=== PATIENT | male | born 1950 | race Caucasian/White ===

== ENCOUNTER → 2018-06-03 | Outpatient (CLI) | payer BC, MEDICARE ==
[2018-06-03 18:04] LABS: Albumin 4.1 g/dL (3.80-4.90); Albumin/Globulin Ratio 1.58 (1.20-2.10); Anion Gap 7.9 mmol/L (4.00-12.00); Calcium 8.8 mg/dL (8.7-10.3); Carbon Dioxide 23.1 mmol/L (21.6-31.8); Globulin 2.6 g/dL (2.1-3.7); LDL Cholesterol,Calculated 89.6 mg/dL (0.0-131.0); Potassium 4.6 mmol/L (3.5-5.5); Total Bilirubin 0.7 mg/dL (0.2-1.2); Total Protein 6.7 g/dL (6.2-8.2); VLDL Calculation 24.4 mg/dL (5.00-40.00)
== END | disposition home or self-care (01) ==
LOC: LABWHC1 08:50
PROVIDERS: ATTEND Internal Medicine Interventional Cardiology
DX: E78.2 Mixed hyperlipidemia (principal); I49.3 Ventricular premature depolarization
CPT/HCPCS: 36415; 80053; 80061; 84443

== ENCOUNTER → 2018-07-25 | Outpatient (CLI) | payer BC ==
[2018-07-25 14:26] LABS: HCT 44.9 % (39.0-53.0); HGB 14.6 gm/dL (13.0-17.5); MCH 29.1 pg (25.0-35.0); MCHC 32.6 g/dL (31.0-37.0); MCV 89.1 fL (80.0-100.0); Mean Platelet Volume 6.9; Platelet Count 217 k/uL (150-450); RBC 5.04 m/uL (4.30-5.90); WBC 9.2 k/uL (3.8-10.6)
[2018-07-25 14:38] LABS: Anion Gap 7 mmol/L; Blood Urea Nitrogen 16 mg/dL (9-20); Carbon Dioxide 25 mmol/L (22-30); Chloride 108 mmol/L (98-107); Potassium 4.7 mmol/L (3.5-5.1); Sodium 140 mmol/L (137-145)
== END ==
LOC: LABPAT 13:50
PROVIDERS: ATTEND Internal Medicine Interventional Cardiology
DX: Z01.812 Encounter for preprocedural laboratory examination (principal); E78.2 Mixed hyperlipidemia; R07.9 Chest pain, unspecified; R94.39 Abnormal result of other cardiovascular function study
CPT/HCPCS: 36415; 80051; 82565; 84520; 85027

== ENCOUNTER 2018-08-06 06:29 | Day surgery (SDC) | payer BC ==
[2018-08-01 09:04] VITALS: BMI 32.5
[~2018-08-06 06:29] MED LIST: ALPRAZolam 0.25 MG TAB PO PRN; ALPRAZolam 0.5 MG TAB PO PRN; ASPIRIN 325 MG TAB PO STA; ATORVASTATIN 80 MG TAB PO STA; NITROGLYCERIN SL TABS 0.4 MG TAB SUBLINGUAL PRN; SODIUM CHLORIDE 0.9% 1,000 ML in EMPTY BAG 1 BAG IV ONE
[2018-08-06] MEDS ORDERED: LIDOCAINE 1% INJ 10MG/ML (20 ML MDV) ONE (07:19)
[2018-08-06] MEDS ORDERED: VERAPAMIL 2.5 MG/ML 2 ML AMP ONE (07:19)
[2018-08-06] MEDS ORDERED: fentaNYL (PF) 50 MCG/ML 2 ML AMP ONE (07:20)
[2018-08-06] MEDS ORDERED: HEPARIN SODIUM 1,000 UN/ML (10ML VL) ONE ×2 (07:20→08:51)
[2018-08-06] MEDS ORDERED: fentaNYL (PF) 50 MCG/ML 2 ML AMP IV ONE (07:48)
[2018-08-06] MEDS ORDERED: LIDOCAINE 1% INJ 10MG/ML (20 ML MDV) SQ ONE (07:56)
[2018-08-06] MEDS ORDERED: MIDAZOLAM 2 MG/2 ML VIAL IV ONE (07:57)
[2018-08-06] MEDS ORDERED: VERAPAMIL SYRINGE (5 MG/10 ML) INTRAARTER ONE (08:00)
[2018-08-06] MEDS: HEPARIN SODIUM 1,000 UN/ML (10ML VL) IV ONE ×2 (08:07→08:30)
[2018-08-06] MEDS ORDERED: NITROGLYCERIN 1000MCG/10ML SYRINGE INTRACORON ONE (08:22)
[2018-08-06] MEDS ORDERED: ADENOSINE 180 MG in SODIUM CHLORIDE 0.9% 30 ML IVP ONE (08:26)
[2018-08-06] MEDS ORDERED: PRASUGREL 10 MG TAB ONE ×2 (08:28→08:30)
[2018-08-06] MEDS ORDERED: PRASUGREL 10 MG TAB PO ONE (08:31)
[2018-08-06] MEDS ORDERED: IOPAMIDOL-370 125ML BTL INJ ONE (08:32)
[2018-08-06] MEDS ORDERED: IOPAMIDOL-370 100ML BTL INJ ONE (08:40)
[2018-08-06] MEDS ORDERED: HEPARIN SODIUM 1,000 UN/ML (10ML VL) IV ONE (08:50)
[2018-08-06] MEDS ORDERED: RX INFO: IV CONTRAST WAS GIVEN 1 EACH MISC MISCELLANE PRN (09:02)
[2018-08-06] MEDS ORDERED: MAG HYDROX/AL HYDROX/SIMETH 30 ML CUP PO PRN (09:02)
[2018-08-06] MEDS ORDERED: NITROGLYCERIN SL TABS 0.4 MG TAB SUBLINGUAL PRN (09:02)
[2018-08-06] MEDS ORDERED: ZOLPIDEM 5 MG TAB PO PRN (09:02)
[2018-08-06] MEDS ORDERED: ATROPINE SULFATE 0.1 MG/ML 10ML SYRINGE IV PRN (09:02)
[2018-08-06] MEDS ORDERED: SODIUM CHLORIDE 0.9% 1,000 ML IV SCH (09:15)
--- NOTE | 2018-08-06 10:16 | CC ---
CARDIAC CATHETERIZATION REPORT Mr. Bolanos is a 68-year-old male with known history of hyperlipidemia, hypertension who presented with symptoms of chest discomfort and had abnormal myocardial perfusion imaging. In view of that, recommendation was made regarding cardiac catheterization. The procedure as well as the risks and the complications were discussed with the patient who is in full understanding and agreement. PROCEDURE: Patient was brought to label stamper in a fasting semi-sedated state. After receiving fentanyl and Benadryl and achieving moderate conscious sedated state. Using Xylocaine anesthesia in the S[place]inger, a 6-Uruguayan sheath was introduced in the right radial artery. Selective right and left coronary angiography performed using 5-Uruguayan 3.5 bend right and left Brian catheter. Multiple views of the coronary artery including hemiaxial views were obtained. Following that, 5-Uruguayan tight pigtail catheter was introduced in the left ventricle and a 30-degree PASTRANA view of the left ventricle was obtained. Following that, catheters were removed. Catheters were removed. Images were reviewed. FINDINGS: LEFT MAIN: This is a short sized vessel, bifurcating immediately into left anterior descending artery and left circumflex. The left main coronary artery has no evidence of obstructive coronary artery disease. LEFT ANTERIOR DESCENDING ARTERY: This is a large-sized vessel reaching toward the apex with a wraparound apex segment giving rise to a large diagonal branch in the mid segment. After the takeoff of diagonal branch, there is an eccentric 50% to 60% plaque. The rest of the vessel has no high-grade stenosis. LEFT CIRCUMFLEX: This is a dominant vessel large in caliber bifurcating distally PDA and posterolateral segment branches. The left circumflex as well as branches have no evidence of obstructive coronary artery disease. RIGHT CORONARY ARTERY: This is a small nondominant vessel that has no evidence of high- grade stenosis. LEFT VENTRICULOGRAM: Left ventriculogram is performed in 30-degree PASTRANA view and revealed a mildly dilated left ventricle with global hypokinesis with ejection fraction of 35% to 40% There was no significant mitral regurgitation. HEMODYNAMICS: There was no gradient across the aortic valve. The left ventricular end- diastolic pressure was 8 to 12 mmHg. CONCLUSION: 1. Borderline significant lesion in the mid left anterior descending artery. 2. Dominant left circumflex. 3. Severely impaired left ventricular systolic function. RECOMMENDATION: In view of finding anatomy, I recommend proceeding with evaluation of the LAD lesion by fractional flow reserve and depending on the findings, further recommendation will be made. Those findings and recommendations were discussed with the patient and he is in full understanding and agreement. MMODL / IJN: [id number] /
--- NOTE | 2018-08-06 10:22 | AS ---
ARTERIAL STUDY FRACTIONAL FLOW RESERVE MEASUREMENT AND ANGIOPLASTY PROCEDURE NOTE: Mr. Bolanos is a 68-year-old male with a history of hypertension, hyperlipidemia, who had an abnormal myocardial perfusion imaging, underwent cardiac catheterization, was found to have borderline significant lesion in the LAD. In view of that, recommendation regarding evaluation of the lesion by fractional flow reserve. The procedures, risks and complications were discussed with the patient who is in full understanding and agreement. PROCEDURE: A 6-Bengali FL 3.5 guiding catheter was introduced into the system. After cannulating the left anterior descending artery, the Doppler flow wire was advanced, positioned distally. Following that and with infusion of adenosine per protocol, the FFR was calculated at 0.76. At that point a 3.0 x 15 mm Xience Faby stent was deployed and post-dilated to 16 atmospheres. Following that, the 0.014 whisper J-wire was advanced into the diagonal branch and a 2.75 x 12 mm Trek balloon was advanced and to inflation maximum of 10 atmospheres were done. After the last inflation, after appropriate wait, the balloon and the guidewire were withdrawn back in the guiding catheter. Images were obtained and repeated. Those images reveal stable successful stenting. At that point, the guiding catheter, the balloon and the guidewire were removed. The sheath was removed. Hemostasis was obtained with deployment of a TR band. There was no immediate complication. Patient is returned to his room in stable condition. Of note, the patient received a total of 12,000 units of heparin as well as intra-arterial verapamil. He had chest discomfort with the inflation that improved at the end of the procedure. RESULTS: Successful stenting of the mid LAD with reduction of stenosis from 60%-70% down to 0% with a pre procedure positive fractional flow reserve. RECOMMENDATION: Patient will be continued on present medical therapy including aspirin and Effient. He has received an oral loading dose of Effient at the start the procedure. The importance of dual antiplatelet treatment were discussed with the patient and his family who are in full understanding and agreement. Duration of the procedure is 61 minutes. MMODL / IJN: [id number] /
[2018-08-06] MEDS ORDERED: ACETAMINOPHEN TAB 325 MG TAB PO PRN (11:23)
[2018-08-06] MEDS ORDERED: ACETAMINOPHEN TAB 325 MG TAB ONE (11:25)
[2018-08-06] MEDS ORDERED: MORPHINE SULFATE 2 MG/ML SYRINGE IVP ONE (13:50)
[2018-08-06] MEDS ORDERED: MORPHINE SULFATE 4 MG/ML SYRINGE ONE (13:51)
[2018-08-06] MEDS: METOPROLOL TARTRATE 25 MG TAB PO SCH (20:57)
[2018-08-06] MEDS ORDERED: ATORVASTATIN 80 MG TAB PO SCH (23:00)
[2018-08-06 23:15] VITALS: RESP 16; TEMP 97.7
--- NOTE | 2018-08-07 07:40 | PN ---
PROGRESS NOTE Mr. Bolanos is a 68-year-old male with history of hyperlipidemia, who has been complaining of chest pain and abnormal myocardial perfusion imaging, underwent cardiac catheterization, was found to have borderline significant lesion in the mid LAD, underwent FFR to the lesion that was abnormal and underwent stenting of that vessel. He was found to have at the same time an impaired left ventricular systolic function. He is doing well this morning, ambulating without difficulty. Denying any chest pain. No dizziness. No palpitation. He continues to be on aspirin once a day, Lipitor 80 mg daily, metoprolol 25 mg twice a day, and Effient 10 mg daily. PHYSICAL EXAMINATION: Blood pressure 126/59 with the heart rate in 60s. LUNGS: Clear. HEART: Regular rate and rhythm. S1, S2. No S3. No rub. ABDOMEN: Soft, nontender. EXTREMITIES: No edema. Right radial pulse intact. EKG revealed sinus mechanism with occasional PVCs and no acute ST-segment changes. IMPRESSION: 1. Status post stenting of the left anterior descending artery. 2. Cardiomyopathy, could be arrhythmia induced. 3. Hyperlipidemia. RECOMMENDATION: Patient will be discharged home today. Lisinopril 5 mg daily will be added to his regimen. His left ventricular systolic function will be followed and depending on his progress, further recommendation will be made. MMODL / IJN: [id number] /
[2018-08-07 07:55] LABS: Anion Gap 6 mmol/L; Blood Urea Nitrogen 13 mg/dL (9-20); Calcium 8.9 mg/dL (8.4-10.2); Carbon Dioxide 24 mmol/L (22-30); Chloride 110 mmol/L (98-107); Glucose 103 mg/dL (74-99); Potassium 4.3 mmol/L (3.5-5.1); Sodium 140 mmol/L (137-145)
[2018-08-07] MEDS: METOPROLOL TARTRATE 25 MG TAB PO SCH (08:28)
[2018-08-07 08:30] VITALS: BP 115/78; PULSE 72
[2018-08-07] MEDS ORDERED: PRASUGREL 10 MG TAB PO SCH (09:00)
[2018-08-07] MEDS ORDERED: ASPIRIN 81 MG PO SCH (09:00)
[2018-08-07] MEDS ORDERED: LISINOPRIL 5 MG TAB PO SCH (09:00)
== END 2018-08-07 08:49 | disposition home or self-care (01) ==
LOC: CATHCVL 06:29 → 3SCARD 16:00 → CATHCVL 08-07 08:49
PROVIDERS: ATTEND Internal Medicine Interventional Cardiology
DX: I25.10 Atherosclerotic heart disease of native coronary artery without angina pectoris (principal); I10 Essential (primary) hypertension; I42.9 Cardiomyopathy, unspecified; E78.2 Mixed hyperlipidemia; Z82.49 Family history of ischemic heart disease and other diseases of the circulatory system; I49.3 Ventricular premature depolarization; Z79.82 Long term (current) use of aspirin; Z79.899 Other long term (current) drug therapy
CPT/HCPCS: 93571; 93458; 80048; C9600; C1769 ×2; C1887; C1894; C1725; C1874; J2250; J2001; J3010; J2270; J1644; J0153; Q9967 ×2; 93005

== ENCOUNTER → 2018-10-31 | Outpatient (CLI) | payer BC ==
[2018-10-31 16:01] LABS: Albumin 4.3 g/dL (3.80-4.90); Albumin/Globulin Ratio 1.59 (1.60-3.17); Globulin 2.7 g/dL (1.6-3.3); Potassium 4.6 mmol/L (3.5-5.5); Total Bilirubin 1.2 mg/dL (0.3-1.2)
== END | disposition home or self-care (01) ==
LOC: LABWHC1 09:09
PROVIDERS: ATTEND Nurse Practitioner Adult Health
DX: I25.10 Atherosclerotic heart disease of native coronary artery without angina pectoris (principal); E78.2 Mixed hyperlipidemia
CPT/HCPCS: 36415; 80053; 80061

== ENCOUNTER → 2019-08-04 | Outpatient (CLI) | payer BC ==
[2019-08-04 15:54] LABS: African American GFR (CKD) 106.4 (60.0-200.0); Albumin 4.1 g/dL (3.80-4.90); Albumin/Globulin Ratio 1.78 (1.60-3.17); Anion Gap 6.3 mmol/L (4.00-12.00); BUN/Creat Ratio 17.5 Ratio (12.00-20.00); Calcium 8.8 mg/dL (8.7-10.3); Carbon Dioxide 25.7 mmol/L (21.6-31.8); Chol/HDL Ratio 3.16; Globulin 2.3 g/dL (1.6-3.3); LDL Cholesterol,Calculated 73.2 mg/dL (0.0-131.0); Non-African American GFR(CKD) 91.8 (60.0-200.0); Potassium 4.4 mmol/L (3.5-5.5); Total Bilirubin 1.1 mg/dL (0.3-1.2); Total Protein 6.4 g/dL (6.2-8.2); VLDL Calculation 21.8 mg/dL (5.00-40.00)
== END | disposition home or self-care (01) ==
LOC: LABWHC1 09:13
PROVIDERS: ATTEND Internal Medicine Interventional Cardiology
DX: E78.2 Mixed hyperlipidemia (principal)
CPT/HCPCS: 36415; 80053; 80061

== ENCOUNTER → 2020-01-26 | Outpatient (CLI) | payer BC ==
--- NOTE | 2020-01-26 14:15 | P.SLEEP ---
History of Present Illness H&P Date: 01/26/20 This is a 69-year-old male patient with known history of coronary artery disease with previous stenting of the LAD, CHF with global hypokinesis and an ejection fraction of 30-35% and history of obstructive sleep apnea with a previous UPPP procedure done many years back. The patient was referred to me for reevaluation knowing that currently is not undergoing any treatment and he is been feeling quite somnolent and sleepy. For all this reasons, he was sent back to me. according to the , he is still snoring. His snoring got slightly better after he underwent his UPPP back in 1997. Since then, his snoring has gotten back and the patient is becoming a bit more drowsy and sleepy during the day. There was one occasion when he slipped while waiting on a traffic signal. His current [place] score is 9. His weight has been essentially stable. No nighttime angina. No nighttime palpitation. Wakes up in the middle of the night utilize the bathroom. He goes to bed at around 11 PM when he wakes up between 7 and 9 AM in the morning. He is averaging between 6 and 7 hours of sleep. He wakes up 2-3 times in the middle of the night for the reasons mentioned above. No history of any motor vehicle accident because of feeling drowsy or sleepy. No restlessness in lower extremity. No nocturnal dyspnea angina shortness of breath or heartburn. No restlessness in lower extremities. No anxiety. No depression. No substance abuse. Review of Systems Constitutional: Denies chills, Denies fever Eyes: denies as per HPI, denies blurred vision, denies bulging eye, denies decreased vision, denies diplopia, denies discharge, denies dry eye, denies irritation, denies itching, denies pain, denies photophobia, denies loss of peripheral vision, denies loss of vision, denies tunnel vision/blind spots Ears: deny: decreased hearing, ear discharge, earache, tinnitus Ears, nose, mouth and throat: Denies headache, Denies sore throat Breasts: absent: as per HPI, gynecomastia Cardiovascular: Denies chest pain, Denies shortness of breath Respiratory: Reports as per HPI Gastrointestinal: Reports as per HPI Genitourinary: Reports as per HPI Musculoskeletal: Reports as per HPI Musculoskeletal: absent: ankle pain, ankle stiffness, ankle swelling Integumentary: Reports as per HPI Neurological: Reports as per HPI Psychiatric: Reports as per HPI Endocrine: Reports as per HPI Hematologic/Lymphatic: Reports as per HPI Allergic/Immunologic: Reports as per HPI Past Medical History Past Medical History: Coronary Artery Disease (CAD), Heart Failure (EF og 30- 35%), Hyperlipidemia, Hypertension, Sleep Apnea/CPAP/BIPAP History of Any Multi-Drug Resistant Organisms: None Reported Past Surgical History: Heart Catheterization With Stent, Orthopedic Surgery Additional Past Surgical History / Comment(s): both knees replaced, achilles tendon repair,cervical laminectomy & fusion, arthroscopy knee, UPPP for sleep apnea. cervical surgery c3-c5, cardiac catheterization and stenting of the LAD Past Anesthesia/Blood Transfusion Reactions: Postoperative Nausea & Vomiting (PONV) Past Psychological History: No Psychological Hx Reported Smoking Status: Never smoker Past Alcohol Use History: None Reported Past Drug Use History: None Reported - Past Family History Mother Family Medical History: Deep Vein Thrombosis (DVT) Medications and Allergies Home Medications Medication Instructions Recorded Confirmed Type Aspirin 81 mg PO DAILY 10/13/14 08/06/18 History Fish Oil/Dha/Epa [Fish Oil 1,200 1 each PO DAILY 10/13/14 08/06/18 History mg Fish Oil] Multivitamin [Men's Multi-Vitamin] 1 each PO DAILY 10/13/14 08/06/18 History Zolpidem [Ambien] 5 mg PO HS PRN 10/13/14 08/06/18 History Metoprolol Tartrate 25 mg PO BID 08/01/18 08/06/18 History Atorvastatin [Lipitor] 80 mg PO HS #90 tab 08/07/18 Rx Lisinopril [Zestril] 5 mg PO DAILY #90 tab 08/07/18 Rx Nitroglycerin Sl Tabs [Nitrostat] 0.4 mg SUBLINGUAL Q5M PRN #25 tab 08/07/18 Rx Prasugrel [Effient] 10 mg PO DAILY #90 tab 08/07/18 Rx Allergies Allergy/AdvReac Type Severity Reaction Status Date / Time No Known Allergies Allergy Verified 08/06/18 06:42 Physical Exam - Constitutional General appearance: no acute distress - EENT Eyes: EOMI ENT: other (post UPPP) Ears: negative: bulging, bullous, dull, erythema, fluid, myringotomy tube, o bstructed by cerumen, scarring, unable to vistualize, other - Neck Neck: no lymphadenopathy Carotids: negative: upstroke normal, upstroke delayed, upstroke diminished, upstroke bounding, bruit absent, bruit present Thyroid: negative: normal size, enlarged, firm, nodule - Respiratory Respiratory: negative: CTA, diminished, dullness, rales, rhonchi, wheezing, prolonged expiration, prolonged inspiration, other - Cardiovascular Rhythm: regular Heart sounds: normal: S1, S2 - Gastrointestinal General gastrointestinal: no organomegaly, soft, no tenderness - Integumentary Integumentary: normal - Neurologic Neurologic: CNII-XII intact, focal deficits - Musculoskeletal Musculoskeletal: gait normal, strength equal bilaterally - Psychiatric Psychiatric: A&O x's 3 Assessment and Plan Plan: 1 ALBERT this patient has a diagnosis of obstructive sleep apnea. He has undergone a previous UPPP back in 1997. Nevertheless, some of the symptoms are back including the increased fatigue and sleepiness. His current [place] score is 9. He is snoring and has some mild sleep fragmentation. He was sent over for reevaluation I think is very reasonable to proceed with another polysomnogram looking for any significant sleep apnea. 2 coronary artery disease with previous coronary stenting of the LAD 3 CHF with cardiomyopathy which is global and an ejection fraction of 30-35% 4 hypertension 5 hyperlipidemia 6 previous UPPP 7 arthritis with multiple orthopedic surgeries including bilateral knee replacements Plan Proceed with another screening polysomnogram to assess for the presence of sleep apnea. We'll consider treatment with CPAP therapy if there is significant sleep breathing disorder that affecting his daytime functionality and his other comorbidities. Encourage weight loss. Ultimately sleep hygiene measures. We'll continue to follow. Sleep Note - Sleep Data Previous Sleep Study: Yes Previous Sleep Study Location: Not known location - Sleep Note Sleep Note: Temperature: 97 8F Pulse Rate: 80 Respiratory Rate: 20 Blood Pressure: 91/61 SpO2: 96% Height: 6 feet 2 inches Weight: 256 pounds BMI: 32.4 Neck Circumference: 16 and 3/4of an inch
== END | disposition home or self-care (01) ==
LOC: SLEEP 13:46
PROVIDERS: ATTEND Internal Medicine Critical Care Medicine
DX: G47.33 Obstructive sleep apnea (adult) (pediatric) (principal); I25.10 Atherosclerotic heart disease of native coronary artery without angina pectoris; I11.0 Hypertensive heart disease with heart failure; E78.5 Hyperlipidemia, unspecified; M17.0 Bilateral primary osteoarthritis of knee; Z96.653 Presence of artificial knee joint, bilateral; Z95.5 Presence of coronary angioplasty implant and graft; Z98.890 Other specified postprocedural states; Z79.82 Long term (current) use of aspirin; Z79.899 Other long term (current) drug therapy
CPT/HCPCS: 99211

== ENCOUNTER → 2020-08-02 | Outpatient (CLI) | payer BC ==
--- NOTE | 2020-08-02 16:35 | PN ---
PROGRESS NOTE Diaz is coming in for a compliancy check regarding his new CPAP machine. The patient was diagnosed having obstructive sleep apnea with an AHI of 16. He has undergone previous UPPP. Based on the symptomatic nature of his disease, the patient was given CPAP therapy, which is set at a pressure of 11 cm of water. He is using a large size of Vitera full face mask. Based on a 30-day compliancy, the patient is doing well, yet we have noted some drop in the compliance over the past 30 days, as the patient is having difficulties with oral dryness. He has increased his humidity level up to 6. Based on the compliance data that was collected between 05/27/2020 and 06/25/2020, his numbers looked decent with an average use of 5 hours and 42 minutes and the CPAP use for more than 4 hours achieving 80%. At that time, his AHI was down to 3.7 and the leak was around 12.7 L and no central apneas were noted. Nevertheless, his compliancy has gone down based on the increased dryness and based on the discomfort that he is getting from full face mask. His current Charlotte Score is at 7. PHYSICAL EXAMINATION: BP is 91/56, pulse 64, respirations 16, weight is 261, temperature 98.4, saturation 97% on room air. GENERAL APPEARANCE: Calm, comfortable. HEAD: Atraumatic, normocephalic. NECK: Supple. No JVD. No goiter or neck masses, Mallampati class 4. LUNGS: Clear to auscultation. HEART: Sounds are regular rate and rhythm. Normal S1, S2. No S3, S4. No murmurs. ABDOMEN: Soft, nontender. No organomegaly. EXTREMITIES: No edema, no cyanosis or clubbing. NEUROLOGIC: Awake, alert. There is no focal neurological deficit. IMPRESSION: 1. Moderate to severe obstructive sleep apnea with an AHI of 16, currently on CPAP at a pressure of 11 cm of water. The patient is post UPPP. 2. Adequate compliancy, although the compliancy has been gradually getting worse as the patient is having increased oral dryness. He is currently using a full-face mask with a minimum amount of leak around his face mask. 3. Sleep fragmentation, improved. 4. Hypersomnia, improved. 5. Hypertension. 6. Hyperlipidemia. 7. Coronary artery disease. 8. History of congestive heart failure with ejection fraction of 35%. PLAN: 1. Continue CPAP therapy at same level of pressure which is 11 cm of water. 2. Will offer the patient an AirFit F20 full face mask, large size. 3. Will offer the patient climate line and gradually drop down the humidity. 4. Anticipate improvement in his compliancy data. 5. See me back in a year's time and followup earlier if needed. MMODL / IJN: [id number] /
== END | disposition home or self-care (01) ==
LOC: SLEEP 13:53
PROVIDERS: ATTEND Internal Medicine Critical Care Medicine
DX: G47.33 Obstructive sleep apnea (adult) (pediatric) (principal); G47.10 Hypersomnia, unspecified; I10 Essential (primary) hypertension; E78.5 Hyperlipidemia, unspecified; I25.10 Atherosclerotic heart disease of native coronary artery without angina pectoris; Z99.89 Dependence on other enabling machines and devices; Z86.79 Personal history of other diseases of the circulatory system

== ENCOUNTER → 2020-08-04 | Outpatient (CLI) | payer BC ==
[2020-08-04 20:47] LABS: African American GFR (CKD) 105.6 (60.0-200.0); Albumin 4.3 g/dL (3.80-4.90); Albumin/Globulin Ratio 1.65 (1.60-3.17); Anion Gap 8.2 mmol/L (4.00-12.00); Carbon Dioxide 25.8 mmol/L (21.6-31.8); Chol/HDL Ratio 2.9; Globulin 2.6 g/dL (1.6-3.3); Non-African American GFR(CKD) 91.1 (60.0-200.0); Potassium 4.3 mmol/L (3.5-5.5); Total Bilirubin 1.1 mg/dL (0.3-1.2); Total Protein 6.9 g/dL (6.2-8.2)
== END | disposition home or self-care (01) ==
LOC: LABWHC1 09:50
PROVIDERS: ATTEND Internal Medicine Interventional Cardiology
DX: E78.2 Mixed hyperlipidemia (principal)
CPT/HCPCS: 36415; 80053; 80061

== ENCOUNTER → 2021-02-06 | Outpatient (CLI) | payer BC ==
[2021-02-06 14:40] LABS: Chol/HDL Ratio 2.84; LDL Cholesterol,Calculated 61.4 mg/dL (0.0-131.0); VLDL Calculation 19.6 mg/dL (5.00-40.00)
== END ==
LOC: LABWHC1 08:50
PROVIDERS: ATTEND Nurse Practitioner Adult Health
DX: E78.2 Mixed hyperlipidemia (principal)
CPT/HCPCS: 36415; 80061; 84450; 84460

== ENCOUNTER → 2021-04-20 | Outpatient (CLI) | payer BC ==
--- NOTE | 2021-04-21 09:41 | MR ---
EXAMINATION TYPE: MR shoulder LT wo con DATE OF EXAM: 04/20/2021 COMPARISON: Plain film 03/28/2021 HISTORY: Left shoulder pain TECHNIQUE: Multiplanar, multisequence imaging of the left shoulder is performed without contrast. FINDINGS: Rotator Cuff: There is abnormal increased signal involving the rotator cuff. The rotator cuff appears attenuated. Coronal image #7 and 8 show abnormal fluid signal at the level of the insertion of the r otator cuff suggesting a partial undersurface tear. There is likely fraying of the tendon more proxim ally. At the posterior aspect of the insertion there is some fluid signal present possibly representi ng a partial undersurface tear. Acromioclavicular Joint: Arthropathy changes present as noted on plain film, there is mass effect on the musculotendinous junction of supraspinatus. There is small distal acromial spur. Glenohumeral Joint: There is osteoarthritic change, remodeling the humeral head Labrum: Posterior labrum shows some focal increased signal on axial image 13, sagittal image #15 of s eries 701 suggesting a partial tear Biceps Tendon: Fluid signal is present along the long head of biceps tendon, there may be a ganglion cyst present axial image #5 measuring 6 mm, the tendon shows a normal position in the bicipital groov e Bone marrow signal: There are some pseudocysts present within the humeral head Other: There is a small joint effusion, some fluid signal is present in the subacromial subdeltoid bu rsa IMPRESSION: There is tendinopathy of the rotator cuff, possible undersurface, intrasubstance tears, correlate for impingement. Marked acromioclavicular joint arthropathy change, possible tear of the posterior labru m noted, there is underlying osteoarthritic change.
== END | disposition home or self-care (01) ==
LOC: RADMRIMAIN 11:03
PROVIDERS: ATTEND Orthopaedic Surgery
DX: M19.012 Primary osteoarthritis, left shoulder (principal); M67.814 Other specified disorders of tendon, left shoulder

== ENCOUNTER → 2021-05-08 | Outpatient (CLI) | payer BC ==
[2021-05-08 16:33] LABS: Basophils # (A) 0.1 k/uL (0-0.2); Basophils % (A) 1 %; Eosinophils # (A) 0.3 k/uL (0-0.7); Eosinophils % (A) 3 %; HCT 43.1 % (39.0-53.0); HGB 14.7 gm/dL (13.0-17.5); Lymphocytes # (A) 2.3 k/uL (1.0-4.8); Lymphocytes % (A) 27 %; MCH 31.2 pg (25.0-35.0); MCHC 34.1 g/dL (31.0-37.0); MCV 91.6 fL (80.0-100.0); Mean Platelet Volume 8.3; Monocytes # (A) 0.7 k/uL (0-1.0); Monocytes % (A) 8 %; Neutrophils # (A) 5.2 k/uL (1.3-7.7); Neutrophils % (A) 59 %; Platelet Count 234 k/uL (150-450); RBC 4.71 m/uL (4.30-5.90); RDW 13.1 % (11.5-15.5); WBC 8.7 k/uL (3.8-10.6)
[2021-05-08 16:47] LABS: Potassium 4.7 mmol/L (3.5-5.1)
== END | disposition home or self-care (01) ==
LOC: LABPAT 15:38
PROVIDERS: ATTEND Orthopaedic Surgery
DX: Z01.812 Encounter for preprocedural laboratory examination (principal); I10 Essential (primary) hypertension; E87.3 Alkalosis; M75.42 Impingement syndrome of left shoulder
CPT/HCPCS: 36415; 80051; 85025

== ENCOUNTER 2021-06-07 07:42 | Day surgery (SDC) | payer BC ==
--- NOTE | 2021-06-06 20:02 | HP ---
HISTORY AND PHYSICAL DATE OF SURGERY: 06/07/2021 Diaz Bolanos is a 70-year-old gentleman seen with progressive left shoulder pain. We discussed options for treatment. He elected to proceed with left shoulder arthroscopy. Consent was obtained. PAST MEDICAL HISTORY: Hypertension, hyperlipidemia. PAST SURGICAL HISTORY: Left knee arthroscopy, right total knee arthroplasty. DAILY MEDICATIONS: Atorvastatin, lisinopril, metoprolol. ALLERGIES: NONE. SOCIAL HISTORY: He denies tobacco use. PHYSICAL EVALUATION OF THE LEFT SHOULDER: Flexion is 140 degrees. Abduction is 120 degrees. External rotation is 40 degrees with some weakness. There is tenderness along the anterolateral acromion and rotator cuff insertion site. Impingement is positive at 90 degrees. Cross-body adduction sign is positive. Drop-arm sign is positive. Distal neurovascular exam is intact. IMAGING: Radiographs of the left shoulder revealed a type 2 acromion, evidence for acromioclavicular joint osteoarthritis and cystic changes of the greater tuberosity. Left shoulder MRI revealed impingement, acromioclavicular joint osteoarthritis and partial rotator cuff tear. IMPRESSION: 1. Left shoulder impingement with partial rotator cuff tear. 2. Left shoulder acromioclavicular joint osteoarthritis. 3. Hypertension. 4. Hyperlipidemia. PLAN: Left shoulder arthroscopy with subacromial decompression, possible arthroscopic rotator cuff repair, Myriam procedure and debridement. MMODL / IJN: [id number] /
[~2021-06-07 07:42] MED LIST changes: -ALPRAZolam 0.25 MG TAB PO PRN; -ALPRAZolam 0.5 MG TAB PO PRN; -ASPIRIN 325 MG TAB PO STA; -ATORVASTATIN 80 MG TAB PO STA; +DEXAMETHASONE SOD PHOSPHATE 4 MG/ML 1 ML VIAL IV ONE; +HYDROmorphone 0.5 MG/0.5 ML SYRINGE IVP PRN; +LACTATED RINGERS 1,000 ML IV SCH; +LIDOCAINE 1% (10MG/ML) FOR IV START INTRADERMA PRN; +MIDAZOLAM 2 MG/2 ML VIAL IV PRN; -NITROGLYCERIN SL TABS 0.4 MG TAB SUBLINGUAL PRN; +ONDANSETRON 4 MG/2 ML VIAL IVP ONE; -SODIUM CHLORIDE 0.9% 1,000 ML in EMPTY BAG 1 BAG IV ONE; +ceFAZolin 3 GM in SODIUM CHLORIDE 0.9% 100 ML IVPB PRN
[2021-06-07] MEDS ORDERED: ROPIVACAINE 5 MG/ML 30 ML VIAL ONE (09:35)
[2021-06-07] MEDS ORDERED: GLYCOPYRROLATE 0.2 MG/ML 2 ML VIAL ONE (09:35)
[2021-06-07 10:48] VITALS: TEMP 97.8
[2021-06-07 10:52] VITALS: RESP 16
[2021-06-07 12:58] VITALS: PULSE 72
[2021-06-07 13:15] VITALS: BP 134/76
--- NOTE | 2021-06-07 13:20 | P.PN ---
Progress Note - Text Patient has an appointment scheduled with Dr. Sahu in the office on 06/14/21 at 9:30AM.
--- NOTE | 2021-06-07 13:55 | P.ANPRN ---
Procedure Note - Anesthesia - Nerve Block Performed Left Interscalene Time Out Performed: Yes (:) Date of Procedure: 06/07/21 Procedure Start Time: Procedure Stop Time: Location of Patient: PreOp Indication: Acute Post-Operative Pain, Requested by Surgeon (Dr Ramos) Sedation Type: Sedate with meaningful contact maintained Preparation: Sterile Prep Position: Supine Catheter: None Needle Types: Pajunk Needle Gauge: Other (see comment) (22g) Ultrasound used to visualize needle placement: Yes Ultrasound used to observe medication spread: Yes Injectate: 0.5% Ropivacaine (see comment for volume) (20cc) Blood Aspirated: No Pain Paresthesia on Injection Noted: No Resistance on Injection: Normal Image Stored and Saved: Yes Events: Uneventful and Well Tolerated
--- NOTE | 2021-06-07 18:25 | CONS ---
CONSULTATION Mr. Bolanos is a 70-year-old male who presented to undergo left shoulder surgery by Dr. Ramos. In the preoperative phase and after receiving sedation, he was noted to have frequent ventricular ectopic activity. In view of that, the surgery was canceled and cardiology consultation was requested. Patient has a known history of coronary artery disease, status post stenting of the mid LAD in 2019, history of hyperlipidemia. He has been relatively stable from the cardiac standpoint. He has a history of mild cardiomyopathy. He had frequent ventricular ectopic activity in the past that has been asymptomatic. He denies any dizziness or palpitations. He denies any syncope. No PND, orthopnea or peripheral edema. MEDICATION: His medication at home included Lipitor 80 mg daily, aspirin once a day, lisinopril 5 mg daily, and metoprolol tartrate 25 mg twice a day. REVIEW OF SYSTEMS: RESPIRATORY SYSTEM: He has no documented history of asthma, emphysema or bronchitis. GI SYSTEM: No recent GI bleeding. No peptic ulcer disease. SYSTEM: No dysuria or hematuria. NERVOUS SYSTEM: No stroke or seizure. PHYSICAL EXAMINATION: Ldmye-ycbj-eijm-old male, alert, oriented, no apparent distress. Examined in the recovery phase 1 room. Blood pressure 140/70 with a heart rate in 70s. HEAD: Normocephalic. EYES: Sclerae anicteric. NECK: Good carotid upstroke. No bruit. No jugular venous distention. LUNGS: Clear to auscultation. HEART: Regular rate and rhythm. S1, S2. No S3. No rub. ABDOMEN: Soft, nontender. Positive bowel sounds. No organomegaly. EXTREMITIES: No significant edema. IMPRESSION: 1. Ventricular ectopic activity documented in the past, asymptomatic. 2. History of coronary artery disease. 3. Left shoulder discomfort; scheduled to undergo surgical intervention. 4. History of hyperlipidemia. RECOMMENDATIONS: From the cardiac standpoint, I will continue present therapy. His surgery has been canceled today. He will be seen in the office next week to see if further adjustment of his medical regimen is needed. Thank you for this consult. Will follow with you. MMODL / IJN: [id number] /
== END 2021-06-07 13:23 | disposition home or self-care (01) ==
LOC: OR 07:42
PROVIDERS: ATTEND Orthopaedic Surgery
DX: M25.812 Other specified joint disorders, left shoulder (principal); M75.112 Incomplete rotator cuff tear or rupture of left shoulder, not specified as traumatic; I49.3 Ventricular premature depolarization; Z53.8 Procedure and treatment not carried out for other reasons; M19.012 Primary osteoarthritis, left shoulder; I25.10 Atherosclerotic heart disease of native coronary artery without angina pectoris; I10 Essential (primary) hypertension; I42.9 Cardiomyopathy, unspecified; E78.5 Hyperlipidemia, unspecified; Z98.890 Other specified postprocedural states; Z95.5 Presence of coronary angioplasty implant and graft; Z79.82 Long term (current) use of aspirin; Z79.899 Other long term (current) drug therapy
CPT/HCPCS: 93005; 64415; 76942; J2250; J1100; J2405; J2795

== ENCOUNTER 2021-07-12 08:28 | Day surgery (SDC) | payer BC ==
[2021-07-11 08:49] VITALS: BMI 34.0
--- NOTE | 2021-07-11 19:52 | HP ---
HISTORY AND PHYSICAL DATE OF SURGERY: 07/12/2021 Diaz Bolanos is a 71-year-old gentleman seen with progressive left shoulder pain. We discussed options for treatment. He elected to proceed with left shoulder arthroscopy. Consent was obtained. Cardiac clearance was provided by Dr. Sahu. PAST MEDICAL HISTORY: Hypertension, hyperlipidemia. PAST SURGICAL HISTORY: Left knee arthroscopy, right total knee arthroplasty. DAILY MEDICATIONS: Atorvastatin, lisinopril, metoprolol, ibuprofen. ALLERGIES: NONE. SOCIAL HISTORY: He denies tobacco use. PHYSICAL EVALUATION OF THE LEFT SHOULDER: Flexion is 140 degrees, abduction is 120 degrees. External rotation is 40 degrees with some weakness, tenderness along the anterolateral acromion and rotator cuff insertion site. Impingement is positive at 90 degrees. Cross-body adduction sign is positive. Drop-arm sign is positive. Distal neurovascular exam is intact. Radiographs of the left shoulder reveal type 2 acromion, acromioclavicular joint osteoarthritis and cystic changes of the tuberosity. MRI left shoulder shows impingement, acromioclavicular joint osteoarthritis, possible rotator cuff tear, possible labral tear. IMPRESSION: 1. Left shoulder impingement with possible rotator cuff tear. 2. Left shoulder acromioclavicular joint osteoarthritis. 3. Hypertension. 4. Hyperlipidemia. PLAN: Left shoulder arthroscopy with subacromial decompression, Myriam procedure, possible rotator cuff repair and debridement. MMODL / IJN: [id number] /
[~2021-07-12 08:28] MED LIST changes: -MIDAZOLAM 2 MG/2 ML VIAL IV PRN
[2021-07-12] MEDS ORDERED: METOPROLOL TARTRATE 25 MG TAB PO STA (09:11)
[2021-07-12] MEDS ORDERED: MIDAZOLAM 2 MG/2 ML VIAL IV ONE (09:57)
[2021-07-12] MEDS ORDERED: fentaNYL (PF) 50 MCG/ML 5 ML AMP IV ONE (09:57)
[2021-07-12] MEDS ORDERED: SUCCINYLCHOLINE CHLORIDE 100 MG/5 ML SYR IV ONE (10:10)
[2021-07-12] MEDS ORDERED: LIDOCAINE 1% INJ 10MG/ML (20 ML MDV) ONE (10:10)
[2021-07-12] MEDS ORDERED: PROPOFOL 10 MG/ML 20 ML VIAL IV ONE (10:10)
[2021-07-12] MEDS ORDERED: .fentaNYL (PF) 50 MCG/ML 2 ML AMP ONE (10:10)
[2021-07-12] MEDS ORDERED: ROPIVACAINE 5 MG/ML 30 ML VIAL ONE (10:10)
--- NOTE | 2021-07-12 10:51 | P.ANPRN ---
Procedure Note - Anesthesia - Nerve Block Performed Left Interscalene Single Time Out Performed: Yes ([id number]) Date of Procedure: 07/12/21 Procedure Start Time: 09:57 Procedure Stop Time: 10:02 Location of Patient: PreOp Indication: Acute Post-Operative Pain, Requested by Surgeon Specifically requested for management of pain by DrVira: Keo Ramos Sedation Type: Sedate with meaningful contact maintained Preparation: Sterile Prep Position: Supine Catheter: None Needle Types: Pajunk Needle Gauge: 21 Ultrasound used to visualize needle placement: Yes Ultrasound used to observe medication spread: Yes Injectate: 0.5% Ropivacaine (see comment for volume) (30cc) Blood Aspirated: No Pain Paresthesia on Injection Noted: No Resistance on Injection: Normal Image Stored and Saved: Yes Events: Uneventful and Well Tolerated
--- NOTE | 2021-07-12 11:51 | P.OP ---
Date of Procedure: 07/12/21 Preoperative Diagnosis: Left shoulder impingement Postoperative Diagnosis: 1. Left shoulder rotator cuff tear 2. Left shoulder impingement 3. Left shoulder acromioclavicular joint osteoarthritis 4. Left shoulder superficial labral tear Procedure(s) Performed: 1. Left shoulder arthroscopic rotator cuff repair 2. Left shoulder arthroscopic subacromial decompression 3. Left shoulder arthroscopic Myriam procedure 4. Left shoulder arthroscopic debridement labral tear Implants: 14.75 Arthrex swivel lock anchor Anesthesia: GETA, regional (Interscalene block) Surgeon: Keo Ramos Spray Machine Tender #1: Gabriel Maldonado Estimated Blood Loss (ml): 7 Pathology: none sent Condition: stable Disposition: PACU Indications for Procedure: 71-year-old patient seen with progressive left shoulder pain. After having treatment options discussed, he elected to proceed with arthroscopy. Operative Findings: See description of procedure Description of Procedure: Patient underwent an interscalene block by department of anesthesia. The patient was then taken to the operative suite. The patient underwent a general anesthetic by the department of anesthesia. The patient was placed into a lateral position and secured. There was appropriate padding of the bony prominence. Left shoulder was then prepped and draped in normal sterile orthopedic fashion. We placed the extremity in 10 pounds of longitudinal traction. A posterior incision was now made for a posterior working portal site. The trocar and cannula were inserted into the glenohumeral joint. Arthroscopy was initiated. Spinal needle was now inserted anteriorly, to ascertain the anterior working portal site. An incision was now made in that area, a trocar was inserted followed by a probe. There was some superficial tearing of the superior labrum. There were grade 1 chondromalacia changes of the glenohumeral joint with no osteochondral tears present. The biceps was found to be stable. I debrided out the superficial labral tear. The residual labrum was probed and it was found to be stable. Instruments were now removed from the glenohumeral joint. Utilizing the posterior working portal site, the trocar and cannula were inserted into the subacromial space. Arthroscopy initiated. I made an incision 2 fingerbreadths lateral to the acromion. I introduced my trocar followed by my ArthroCare ablator. I now began ablating thick subacromial bursal tissue, which exposed the undersurface of the anterior acromion. There was diminished subacromial space. There was a very prominent anterior acromion. A motorized bur was introduced and a subacromial decompression was performed. I also excised some osteophytes off the inferior aspect of the distal clavicle. The AC joint was visualized and noted to be fairly arthritic. The motorized bur was introduced in the anterior portal site and a Myriam procedure was performed without difficulty, decompressing the AC joint nicely. I turned my attention to the rotator cuff. There was a tear involving the anterior aspect of the distal supraspinatus measuring approximately 1 cm. I debrided the margins getting down to stable tendon tissue. The defect now measured approximately 1.5 cm but was freely mobile over the footprint. I abraded the footprint with a motorized bur. With the assistance of Calin HOU I passed 3 everted mattress sutures thro ugh good bites of rotator cuff tendon. I now punched the hole and the footprint area for insertion of an anchor. I now passed all 6 limbs of suture through the eyelet of a 4.75 Arthrex swivel lock anchor. I placed the eyelet into the pre- punched hole. I held then in position while Calin HOU tension all sutures and deployed the anchor with good fixation noted. All residual suture limbs we re now clipped. We had good compression of the tendon along the entire footprint. Instruments now removed from the portal sites. All portal sites were approximated with nylon suture. Sterile dressings were applied followed by a shoulder sling. Gabriel HOU assisted in this case. The patient was awakened, transferred to a bed, and taken to recovery in stable condition.
[2021-07-12 11:53] VITALS: TEMP 97.8
[2021-07-12 14:21] VITALS: BP 134/76; PULSE 60; RESP 16
== END 2021-07-12 14:50 | disposition home or self-care (01) ==
LOC: OR 08:28
PROVIDERS: ATTEND Orthopaedic Surgery
DX: I10 Essential (primary) hypertension (principal); E78.5 Hyperlipidemia, unspecified; Z96.651 Presence of right artificial knee joint; I25.10 Atherosclerotic heart disease of native coronary artery without angina pectoris; I25.2 Old myocardial infarction; I99.8 Other disorder of circulatory system; G47.33 Obstructive sleep apnea (adult) (pediatric); Z98.890 Other specified postprocedural states; Z79.1 Long term (current) use of non-steroidal anti-inflammatories (NSAID); Z79.899 Other long term (current) drug therapy
CPT/HCPCS: 64415; 76942; 29826; 29827; 29824; C1713; J2250; J1100; J0690; J2405; J2001; J3010 ×2; J2795; J0330; J2704

== ENCOUNTER → 2021-09-25 | Outpatient (CLI) | payer BC ==
--- NOTE | 2021-09-25 17:22 | XR ---
RIBS and PA chest x-ray HISTORY: W19.XXXA Fall Frontal view of the chest and 4 views of the right ribs are submitted There is no evident pneumothorax or pleural effusion. No evident displaced rib fracture. Cardiac medi astinal silhouette is within normal limits. There is thoracic spondylosis present. Arthropathy noted at the acromioclavicular joint. impression: No acute abnormality. Bone scan could be performed if occult injury is suspected clinical ly.
--- NOTE | 2021-09-25 17:26 | XR ---
Right ankle HISTORY: W19.XXXA Fall 3 views of the right ankle Soft tissue swelling is present. Bone mineralization, joint spaces, alignment are maintained. Soft ti ssue ossifications at the distal leg may be vascular. Correlate for venous insufficiency. Large enthe sophyte, calcification present at the level of the distal Achilles tendon. There is a plantar calcane al spur. Arthropathy present within the foot, there is spurring at the tibiotalar joint. impression: No acute fracture or dislocation.
== END | disposition home or self-care (01) ==
LOC: RADXRMAIN 14:16
PROVIDERS: ATTEND Family Medicine
DX: T14.8XXA Other injury of unspecified body region, initial encounter (principal); W19.XXXA Unspecified fall, initial encounter

== ENCOUNTER → 2022-01-01 | Outpatient (CLI) | payer BC ==
[2022-01-01 18:20] LABS: ALT 33 U/L (10-49); AST 24 U/L (14-35); Albumin 4.3 g/dL (3.8-4.9); Albumin/Globulin Ratio 1.56 (1.60-3.17); Alkaline Phosphatase 94 U/L (41-126); BUN/Creat Ratio 12.14 Ratio (12.00-20.00); Blood Urea Nitrogen 10.4 mg/dL (9.0-27.0); Calcium 9.4 mg/dL (8.7-10.3); Carbon Dioxide 26.7 mmol/L (20.0-27.5); Chloride 103 mmol/L (96-109); Chol/HDL Ratio 2.85 Ratio; Globulin 2.8 g/dL (1.6-3.3); Glucose 101 mg/dL (70-110); Sodium 140 mmol/L (135-145); Total Protein 7.1 g/dL (6.2-8.2)
== END | disposition home or self-care (01) ==
LOC: LABWHC1 10:39
PROVIDERS: ATTEND Internal Medicine Interventional Cardiology
DX: E78.2 Mixed hyperlipidemia (principal)
CPT/HCPCS: 36415; 80053; 80061

== ENCOUNTER 2023-03-01 19:44 | Emergency (ER) | payer BC, MEDICARE ==
[2023-03-01 19:56] VITALS: RESP 16; TEMP 98.2
[2023-03-01 21:25] VITALS: PULSE 65
--- NOTE | 2023-03-01 21:37 | XR ---
EXAMINATION TYPE: XR knee complete LT DATE OF EXAM: 03/01/2023 COMPARISON: None HISTORY: Pain, fall TECHNIQUE: 3 view left knee FINDINGS: Tibial and femoral components are present. No acute fracture or dislocation is evident. No joint effusion is evident. Follow up exams can be performed 7-10 days from acute trauma and pain. IMPRESSION: 1. No acute osseous abnormality. 2. Prosthesis remains in position.
--- NOTE | 2023-03-01 21:59 | XR ---
EXAMINATION TYPE: XR tibia fibula LT DATE OF EXAM: 03/01/2023 COMPARISON: None HISTORY: Pain, fall TECHNIQUE: 2 view left tibia and fibula FINDINGS: There is a knee prosthesis present. No acute fractures are evident. Soft tissues appear nor mal. Achilles tendon heel spurs are noted. IMPRESSION: 1. No acute osseous abnormality left tibia and fibula
[2023-03-01] MEDS ORDERED: DIPH,PERTUS(ACELL)TETVAC-LF 0.5 ML VIAL IM ONE (22:08)
--- NOTE | 2023-03-01 22:08 | ED ---
General Adult HPI - General Chief complaint: Extremity Injury, Lower Stated complaint: Fall/Lt leg injury Time Seen by Provider: 03/01/23 20:28 Source: patient, RN notes reviewed, old records reviewed Mode of arrival: ambulatory Limitations: no limitations - History of Present Illness Initial comments: Patient is a 72-year-old male who presents emergency Department complaining of left leg pain. Last night, patient had his leg stuck in the trailer door of a trailer when he was helping someone move. The risks [place] the trailer door, and he stepped through one of the slats and is calf Stock. He did fall down but was caught in a device on negative for gout. Since that time he has been having increased pain in his left calf. Denies any obvious deformity. Can ambulate on it but does need assistance with a cane. Is concerned something might be broken which is why presents for evaluation. Denies any other injuries. Denies any head. Denies loss of consciousness. His no other acute complaints at this time. His normal range of motion of all 4 extremities. Pain in his calf. Some mild tenderness to palpation in the knee as well. - Related Data Home Medications Medication Instructions Recorded Confirmed Aspirin 81 mg PO DAILY 10/13/14 07/11/21 Fish Oil/Dha/Epa [Fish Oil 1,200 1 each PO DAILY 10/13/14 07/11/21 mg Fish Oil] Multivitamin [Men's Multi-Vitamin] 1 each PO DAILY 10/13/14 07/11/21 Metoprolol Tartrate 25 mg PO BID 08/01/18 07/11/21 lisinopriL [Zestril] 5 mg PO QAM 06/05/21 07/11/21 Previous Rx's Medication Instructions Recorded Atorvastatin [Lipitor] 80 mg PO HS #90 tab 08/07/18 Nitroglycerin Sl Tabs [Nitrostat] 0.4 mg SUBLINGUAL Q5M PRN #25 tab 08/07/18 HYDROcodone/APAP 5-325MG [[place] 1 - 2 tab PO Q6HR PRN #42 tab 07/12/21 5-325] Cyclobenzaprine [Flexeril] 5 mg PO TID PRN 5 Days #15 tablet 03/01/23 Allergies Allergy/AdvReac Type Severity Reaction Status Date / Time No Known Allergies Allergy Verified 07/12/21 09:02 Review of Systems ROS Statement: Those systems with pertinent positive or pertinent negative responses have been documented in the HPI. Review of Systems: CONST: Denies fever EYES: Denies blurry vision ENT: Denies nasal congestion C/V: Denies Chest pain RESP: Denies shortness of breath GI: Denies abdominal pain : Denies dysuria SKIN: Denies rash. MSK: Endorses left leg pain NEURO: Denies headache ROS Other: All systems not noted in ROS Statement are negative. Past Medical History Past Medical History: Coronary Artery Disease (CAD), Hyperlipidemia, Hypertension, Sleep Apnea/CPAP/BIPAP Additional Past Medical History / Comment(s): Tinnitus. Uses CPAP. History of Any Multi-Drug Resistant Organisms: None Reported Past Surgical History: Back Surgery, Heart Catheterization With Stent, Orthopedic Surgery Additional Past Surgical History / Comment(s): Bilateral knee replacements, achilles tendon repair, cervical laminectomy & fusion, knee arthroscopy, UPPP for Sleep Apnea, cervical surgery C3-C5, cardiac catheterization and stenting of the LAD. Past Anesthesia/Blood Transfusion Reactions: Previous Problems w/ Anesthesia, Postoperative Nausea & Vomiting (PONV) Additional Past Anesthesia/Blood Transfusion Reaction / Comment(s): Difficulty waking up. Date of Last Stent Placement:: 08/16 Past Psychological History: No Psychological Hx Reported Smoking Status: Never smoker Past Alcohol Use History: None Reported Past Drug Use History: None Reported - Past Family History Mother Family Medical History: Deep Vein Thrombosis (DVT) General Exam - General Exam Comments Initial Comments: General: Appears in no acute distress. HEAD: Normal with no signs of head trauma. EYES: EOMI. ENT: Hearing grossly intact. RESPIRATORY: No respiratory distress. C/V: Regular rate and rhythm. ABD: Abdomen is nondistended. EXT: No obvious deformity. No leg edema or swelling. Neurovascular intact throughout. Posterior left calf tenderness to palpation. Mild joint line tenderness of the knee as well. No obvious deformity or injury. SKIN: Abrasion over the anterior aspect of the left calf. NEURO: Alert and oriented. Limitations: no limitations Course Vital Signs 03/01/23 03/01/23 03/01/23 19:51 20:11 21:00 Temperature 98.2 F Pulse Rate 62 59 L 65 Respiratory 16 16 16 Rate Blood Pressure 111/62 155/66 155/75 O2 Sat by Pulse 96 96 98 Oximetry Medical Decision Making - Medical Decision Making Was pt. sent in by a medical professional or institution (, SAVI, METAL FURNITURE PANEL COVERER, urgent care, hospital, or senior living...) When possible be specific @ -No Did you speak to anyone other than the patient for history (EMS, parent, family, police, friend...)? What history was obtained from this source @ -No Did you review nursing and triage notes (agree or disagree)? Why? @ -I reviewed and agree with nursing and triage notes Were old charts reviewed (outside hosp., previous admission, EMS record, old EKG, old radiological studies, urgent care reports/EKG's, senior living records)? Report findings @ -No old charts were reviewed Differential Diagnosis (chest pain, altered mental status, abdominal pain women, abdominal pain men, vaginal bleeding, weakness, fever, dyspnea, syncope, headache, dizziness, GI bleed, back pain, seizure, CVA, palpatations, mental health, musculoskeletal)? @ -Differential Musculoskeletal Muscular strain, contusion, ligament sprain, fracture, arthritis, septic arthritis, bursitis, cellulitis, muscle spasm, nerve compression, DVT, arterial occlusion, herpes zoster, electrolyte abnormality, tumor.... This is not meant to be in all inclusive list EKG interpreted by me (3pts min.). @ -None done X-rays interpreted by me (1pt min.). @ -Left knee, tib-fib x-ray reveals no obvious acute traumatic injury, fracture. Left knee replacement appears intact. CT interpreted by me (1pt min.). @ -None done U/S interpreted by me (1pt. min.). @ -None done What testing was considered but not performed or refused? (CT, X-rays, U/S, labs)? Why? @ -None What meds were considered but not given or refused? Why? @ -None Did you discuss the management of the patient with other professionals (professionals i.e. SAVI Zaman, METAL FURNITURE PANEL COVERER, lab, RT, psych nurse, social service coordinator, chief administrative officer, teacher, development officer, business case analyst)? Give summary @ -No Was smoking cessation discussed for >3mins.? @ -No Was critical care preformed (if so, how long)? @ -No Were there social determinants of health that impacted care today? How? (Homel essness, low income, unemployed, alcoholism, drug addiction, transportation, low edu. Level, literacy, decrease access to med. care, assisted, rehab)? @ -No Was there de-escalation of care discussed even if they declined (Discuss DNR or withdrawal of care, Hospice)? DNR status @ -No What co-morbidities impacted this encounter? (DM, HTN, Smoking, COPD, CAD, Cancer, CVA, ARF, Chemo, Hep., AIDS, mental health diagnosis, sleep apnea, morbid obesity)? @ -None Was patient admitted / discharged? Hospital course, mention meds given and route, prescriptions, significant lab abnormalities, going to OR and other pertinent info. @ -Based on the patient's presentation and physical exam, I'm concerned for possible injury to the patient's left leg. We will obtain x-rays. I offered analgesic medications which were declined. Unknown last tetanus and therefore we will update. Vital signs within acceptable limits. Exam relatively unremarkable. He was in agreement with this plan. X-rays negative for any obvious acute traumatic injury. I reviewed them with the patient. We believe that this is sprain. Recommended crutches, ice, [id number] analgesic medications. He'll be discharged home with a prescription for muscle relaxers. Recommended follow-up with his PCP in the next 24-48 hours. He was in agreement this plan. Strict return precautions discussed. I will provide the patient with a prescription for Flexeril. I instructed the patient to follow up with their PCP in the next 1-3 days. I explained that the patient should return to the emergency department if they experience any worsening symptoms. Strict return precautions were discussed with the patient. The patient expressed understanding of these instructions. I answered all questions that the patient had. The patient was discharged home in good condition with their prescriptions and follow up information. Undiagnosed new problem with uncertain prognosis? @ -No Drug Therapy requiring intensive monitoring for toxicity (Heparin, Nitro, Insulin, Cardizem)? @ -No Were any procedures done? @ -No Diagnosis/symptom? @ -Left leg sprain Acute, or Chronic, or Acute on Chronic? @ -Acute Uncomplicated (without systemic symptoms) or Complicated (systemic symptoms)? @ -Uncomplicated Side effects of treatment? @ -No Exacerbation, Progression, or Severe Exacerbation? @ -No Poses a threat to life or bodily function? How? (Chest pain, [place], [place], pneumonia, PE, COPD, DKA, ARF, appy, cholecystitis, CVA, Diverticulitis, Homicidal, Suicidal, threat to staff... and all critical care pts) @ -No Disposition Clinical Impression: Leg sprain Disposition: HOME SELF-CARE Condition: Good Instructions (If sedation given, give patient instructions): Knee Sprain (ED) Prescriptions: Cyclobenzaprine [Flexeril] 5 mg PO TID PRN 5 Days #15 tablet PRN Reason: Pain Is patient prescribed a controlled substance at d/c from ED?: No Referrals: Mateo Washburn DO [Primary Care Provider] - 1-2 days Time of Disposition: 21:59
[2023-03-01 22:36] VITALS: BP 142/65
== END 2023-03-01 22:30 | disposition home or self-care (01) ==
LOC: EC 19:44
DX: S83.92XA Sprain of unspecified site of left knee, initial encounter (principal); S80.812A Abrasion, left lower leg, initial encounter; I10 Essential (primary) hypertension; I25.10 Atherosclerotic heart disease of native coronary artery without angina pectoris; Z23 Encounter for immunization; Z79.82 Long term (current) use of aspirin; Z79.899 Other long term (current) drug therapy; Z96.653 Presence of artificial knee joint, bilateral; W22.8XXA Striking against or struck by other objects, initial encounter
CPT/HCPCS: 90471; 90715; 99283

== ENCOUNTER → 2023-03-11 | Outpatient (CLI) | payer BC, MEDICARE ==
--- NOTE | 2023-03-11 10:22 | XR ---
EXAMINATION TYPE: XR ankle complete LT DATE OF EXAM: 03/11/2023 COMPARISON: NONE HISTORY: Pain FINDINGS: Three views of the ankle demonstrate the ankle mortise to be intact and symmetric. The joint spaces are preserved. The osseous structures are intact. Numerous soft tissue ossifications near the Achil les insertion calcaneous. Tiny plantar calcaneal spur. Metallic structures overlying the calcaneus li gament surgery correlate clinically. Stable sclerosis of the distal fibula. IMPRESSION: 1. No definite acute fracture or dislocation, if symptoms persist follow-up study in 7 to 10 days wou ld be suggested. 2. There are numerous well corticated ossified soft tissue densities along the course of the upper ma rgin of the calcaneus and Achilles insertion. May be related to heterotopic ossification or prior tra ronaldo. 3. Correlate for previous surgery involving the calcaneus.
--- NOTE | 2023-03-11 10:23 | XR ---
EXAMINATION TYPE: XR tibia fibula LT DATE OF EXAM: 03/11/2023 COMPARISON: 03/01/2023 HISTORY: Pain TECHNIQUE: Two views are submitted. FINDINGS: There is a linear lucency through the neck of the fibula. A second lucency seen along the proximal di aphysis fibula. Postsurgical change involving the knee. Diffuse osteopenia. Probable surgery partially included in th e [id number] of the calcaneus with metallic densities. Numerous soft tissue ossifications along th e upper margin of the posterior calcaneus. These appear chronic. IMPRESSION: 1. Acute nondisplaced fractures involving the proximal fibula as discussed above. A [place] level critical message alert has been initiated for Mateo Washburn DO via the [employer] Critical Results System on 03/11/2023 10:21 AM. This message alert has been sent to Mateo Washburn DO vi a the preferences provided by the clinician for the receipt of Radiology Critical Findings. Message I [id number].
--- NOTE | 2023-03-11 10:32 | XR ---
EXAMINATION TYPE: XR knee complete LT DATE OF EXAM: 03/11/2023 COMPARISON: 03/01/2023 TECHNIQUE: Two views submitted HISTORY: Post op FINDINGS: There is a prosthetic knee in near anatomic alignment. Small amount of fluid in the patellar bursa. A synchondrosis of the proximal tibia and fibula. Stable. Lucency of the fibular neck and proximal d iaphysis of the fibula suspicious for hairline nondisplaced fracture. IMPRESSION: 1. Findings suspicious for hairline nondisplaced fracture fibular neck and proximal diaphysis fibula. . Small amount of fluid in the suprapatellar bursa.
== END | disposition home or self-care (01) ==
LOC: RADXRMAIN 08:53
PROVIDERS: ATTEND Family Medicine
DX: S82.435A Nondisplaced oblique fracture of shaft of left fibula, initial encounter for closed fracture (principal); M25.572 Pain in left ankle and joints of left foot

== ENCOUNTER 2023-10-16 12:24 | Day surgery (SDC) | payer BC, MEDICARE ==
--- NOTE | 2023-10-14 14:18 | P.HPOR ---
History of Present Illness H&P Date: 10/14/23 Subjective: This is a 73 year old male that presents today for follow up evaluation regarding a several month history of intermittent right middle finger locking and catching. Patient states he first noticed it when playing guitar when the finger was flexed down and gets caught. He has noticed worsening of his symptoms over the last several weeks and it is now locking and caching. He denies any injury and denies any inciting event. He underwent a steroid injection in March of 2023 with temporary relief of his symptoms. Physical Examination: RUE: AIN/PIN/Radial/Ulnar/Median motor intact. Radial/Ulnar/Median SILT. 2+/4 Radial/Ulnar pulses palpated. 5/5 APB, 5/5 FDI. Negative Finkelsteins, negative CMC grind, negative Durkan's compression.Tender to palpation over right middle finger A1 javier with locking, catching or clicking. Impression: 1.) Right middle finger stenosing tenosynovitis Plan: Diagnosis and treatment options were discussed with the patient. He has failed conservative treatment and would like to pursue a right middle finger A1 javier release. Risks and benefits of surgery including bleeding, infection, damage to surrounding tissue, need for further surgery, residual numbness were discussed and the patient wished to go forward with surgery. CC: Terese Springer DO Orthopedic Hand/Upper Extremity Surgeon Past Medical History Past Medical History: Coronary Artery Disease (CAD), Hyperlipidemia, Hypertension, Sleep Apnea/CPAP/BIPAP Additional Past Medical History / Comment(s): Tinnitus. Uses CPAP. at times History of Any Multi-Drug Resistant Organisms: None Reported Past Surgical History: Back Surgery, Heart Catheterization With Stent, Orthopedic Surgery Additional Past Surgical History / Comment(s): Bilateral knee replacements, achilles tendon repair, cervical laminectomy & fusion,x2 knee arthroscopy, UPPP for Sleep Apnea, cervical surgery C3-C5, cardiac catheterization and stenting of the LAD.lft shoulder Past Anesthesia/Blood Transfusion Reactions: Previous Problems w/ Anesthesia, Postoperative Nausea & Vomiting (PONV) Additional Past Anesthesia/Blood Transfusion Reaction / Comment(s): Difficulty waking up. Date of Last Stent Placement:: 08/16 Smoking Status: Never smoker - Past Family History Mother Family Medical History: Deep Vein Thrombosis (DVT) Medications and Allergies Home Medications Medication Instructions Recorded Confirmed Type Aspirin 81 mg PO DAILY 10/13/14 10/11/23 History Fish Oil/Dha/Epa [Fish Oil 1,200 1 each PO DAILY 10/13/14 10/11/23 History mg Fish Oil] Multivitamin [Men's Multi-Vitamin] 1 each PO DAILY 10/13/14 10/11/23 History Metoprolol Tartrate 25 mg PO BID 08/01/18 10/11/23 History Atorvastatin [Lipitor] 80 mg PO HS #90 tab 08/07/18 10/11/23 Rx lisinopriL [Zestril] 5 mg PO QAM 06/05/21 10/11/23 History Vit D(Unk) 2,000 units PO DAILY 10/11/23 10/11/23 History Allergies Allergy/AdvReac Type Severity Reaction Status Date / Time No Known Allergies Allergy Verified 10/11/23 10:08 Physical Examination Osteopathic Statement: *. No significant issues noted on an osteopathic structural exam other than those noted in the History and Physical/Consult.
[~2023-10-16 12:24] MED LIST changes: -DEXAMETHASONE SOD PHOSPHATE 4 MG/ML 1 ML VIAL IV ONE; -LACTATED RINGERS 1,000 ML IV SCH; -LIDOCAINE 1% (10MG/ML) FOR IV START INTRADERMA PRN; -ONDANSETRON 4 MG/2 ML VIAL IVP ONE; -ceFAZolin 3 GM in SODIUM CHLORIDE 0.9% 100 ML IVPB PRN
[2023-10-16] MEDS: LACTATED RINGERS 1,000 ML IV SCH (13:07)
[2023-10-16] MEDS: DEXAMETHASONE SOD PHOSPHATE 4 MG/ML 1 ML VIAL IV ONE (13:17)
[2023-10-16] MEDS: ONDANSETRON 4 MG/2 ML VIAL IVP ONE (13:18)
[2023-10-16] MEDS ORDERED: MIDAZOLAM 2 MG/2 ML VIAL ONE (13:25)
[2023-10-16] MEDS ORDERED: fentaNYL (PF) 50 MCG/ML 2 ML AMP ONE (13:25)
[2023-10-16] MEDS ORDERED: PROPOFOL 10 MG/ML 20 ML VIAL IV ONE (13:25)
[2023-10-16] MEDS: LIDOCAINE 2% INJ 20 MG/ML SQ ONE ×2 (13:26→13:34)
[2023-10-16] MEDS: BUPIVACAINE (PF) 0.25% 30 ML VIAL SQ ONE ×2 (13:27→13:34)
--- NOTE | 2023-10-16 13:45 | P.OP ---
Date of Procedure: 10/16/23 Preoperative Diagnosis: Right middle finger trigger finger Postoperative Diagnosis: Right middle finger trigger finger Procedure(s) Performed: Right middle finger A1 javier release Anesthesia: MAC Surgeon: Severiano Clark Production Posting Clerk #1: Jewel Tom Estimated Blood Loss (ml): 0 Pathology: none sent Condition: stable Disposition: PACU Description of Procedure: This is a 73 year old male who presents today for a right middle finger trigger finger A1 javier release after having failed conservative treatment. Risks and benefits of surgery were discussed with the patient including bleeding, damage to surrounding tissue, infection, need for further surgery as well as risks of anesthesia including pulmonary embolism and even and the patient wished to proceed with surgical intervention. The patient was seen in the pre-operative area by myself. Consent and H&P were completed and updated. The correct extremity was marked in the pre-operative area by myself and all other questions were answered. Operative Narrative: The patient was brought to the operating room by the department of anesthesia. They remained on the portable stretcher and a rolling hand table was brought to the side of the operative extremity. Pre-operative time out was performed indicating the correct patient, procedure and laterality. All in the room agreed. Pre-operative antibiotics were given prior to skin incision. The patient was then drifted off to sleep by the department of anesthesia. MAC anesthesia was utilized and a 50:50 mixture of 1% Lidocaine and 0.5% bupivacaine was injected into the subcutaneous tissues of the palmar skin, 4ccs total. A nonsterile tourniquet was then applied to the operative extremity and the right upper extremity was then prepped and draped in normal sterile fashion. The operative extremity was the exsanguinated with an esmarch bandage and the tourniquet was inflated to 250mmHg. Oblique incision was made at the base of the middle finger. Blunt dissection was taken down to the level of the A1 javier. Ragnell retractors were placed both radially and ulnarly to protect neurovascular bundles. Littler tenotomy scissors were then used to release the A1 javier from proximal to distal under direct visualization. Proximal fascial attachments were released. The tendon was then taken through range of motion and no locking or catching was appreciated. The wound was then closed with interrupted 4-0 nylon sutures in a horizontal mattress fashion. Sterile dressing consisting of adaptic, 4x4s, webril, and an minor wrap was applied. Tourniquet was let down and the hand was immediately well perfused. The patient was then woken by the department of anesthesia and transferred to PACU in stable condition. Jewel HOU was present to assist in retraction of digital neurovascular bundles and manipulation of the arm. Severiano Clark D.O. Orthopedic Hand/Upper Extremity Surgeon
--- NOTE | 2023-10-16 15:11 | P.CRDCN ---
History of Present Illness Consult date: 10/16/23 History of present illness: The patient is a very pleasant 73-year-old gentleman who sees Dr. Sahu on regular basis with a past medical history significant for coronary artery disease and prior stenting of the left anterior descending artery in 2019 as well as hypertension and dyslipidemia. The patient was admitted to the hospital for an elective surgery where he underwent a finger trigger surgery earlier today. The surgery itself was uneventful. We consulted to see the patient because of bradycardia noted on the monitor and also noted by the nurse taking care of the patient. The patient came in from the surgery about an hour ago. When he came in his heart rate has been in the 50s. On the monitor in the recovery room it was noted that his nurse that his heart rate has been in the 30s and that was confirmed by the manual check of his pulse by the nurse taking care of him. Subsequently his heart rate went into the 40s. When he was seen and evaluated earlier today his heart rate has been in the 50s. I did perform an EKG and that showed sinus mechanism with polymorphic PVCs noted. No ischemic or significant ST or T-wave abnormalities noted. The patient is not experiencing any dizziness or lightheadedness but he feels tired and fatigued and he does not have any symptoms of any chest pain or chest discomfort or any shortness of breath or any feeling of heart racing or fluttering and no presyncope and no syncope. He was receiving metoprolol 25 mg by mouth twice a day until the day of the surgery today. I'm going to hold metoprolol and beside that he is not on any AV tejas sherin agents at this point. The physical examination remarkable for very distant heart sounds with regular rate and rhythm and diminished breathing sounds bilaterally and no edema was noted and the abdomen is soft and nontender Plan Bradycardia with heart rate in the 30s confirmed by the nurse and the patient is symptomatic with it Status post surgery and status post a right finger trigger surgery Coronary artery disease with previous stenting of the LAD Hypertension Dyslipidemia Plan Hold beta sherin and avoid any AV tejas sherin agents I advise monitoring the patient for additional 24 hours Rule out coronary artery disease. Obtain serial cardiac enzymes Obtain TSH and free T4 Obtain an echocardiogram was Doppler Please note that the bradycardia could be just from the sedation given throughout the surgery but the patient has been post surgery about a few hours now Follow-up with the patient Past Medical History Past Medical History: Coronary Artery Disease (CAD), Hyperlipidemia, Hypertension, Sleep Apnea/CPAP/BIPAP Additional Past Medical History / Comment(s): Tinnitus. Uses CPAP. at times History of Any Multi-Drug Resistant Organisms: None Reported Past Surgical History: Back Surgery, Heart Catheterization With Stent, Orthopedic Surgery Additional Past Surgical History / Comment(s): Bilateral knee replacements, achilles tendon repair, cervical laminectomy & fusion,x2 knee arthroscopy, UPPP for Sleep Apnea, cervical surgery C3-C5, cardiac catheterization and stenting of the LAD.lft shoulder Past Anesthesia/Blood Transfusion Reactions: Previous Problems w/ Anesthesia, Postoperative Nausea & Vomiting (PONV) Additional Past Anesthesia/Blood Transfusion Reaction / Comment(s): Difficulty waking up. Date of Last Stent Placement:: 08/16 Smoking Status: Never smoker - Past Family History Mother Family Medical History: Deep Vein Thrombosis (DVT) Medications and Allergies Home Medications Medication Instructions Recorded Confirmed Type Aspirin 81 mg PO DAILY 10/13/14 10/16/23 History Fish Oil/Dha/Epa [Fish Oil 1,200 1 each PO DAILY 10/13/14 10/16/23 History mg Fish Oil] Multivitamin [Men's Multi-Vitamin] 1 each PO DAILY 10/13/14 10/16/23 History Metoprolol Tartrate 25 mg PO BID 08/01/18 10/16/23 History Atorvastatin [Lipitor] 80 mg PO HS #90 tab 08/07/18 10/16/23 Rx lisinopriL [Zestril] 5 mg PO QAM 06/05/21 10/16/23 History Vit D(Unk) 2,000 units PO DAILY 10/11/23 10/16/23 History Allergies Allergy/AdvReac Type Severity Reaction Status Date / Time No Known Allergies Allergy Verified 10/16/23 12:51 Physical Exam Vitals: Vital Signs Temp Pulse Resp BP Pulse Ox 10/16/23 14:50 40 L 16 137/64 100 10/16/23 14:35 51 L 16 135/70 100 10/16/23 14:20 41 L 16 136/70 99 10/16/23 14:05 58 L 16 127/68 100 10/16/23 13:50 68 18 106/56 96 10/16/23 12:49 97.3 F L 44 L 18 117/73 96 Intake and Output 10/16/23 10/16/2310/15/24 06:59 14:59 22:59 Intake Total 400 Balance 400 Intake: IV 400 Other: Weight 121.5 kg Results Current Medications Generic Name Dose Route Start Last Admin Trade Name Jory PRN Reason Stop Dose Admin Hydromorphone HCl 0.5 mg 10/16/23 07:28 Hydromorphone 0.5 Mg/0.5 Ml Syringe IVP 10/17/23 07:29 Q5M PRN Phase 1 or 2 - Pain Control Lactated Ringer's 1,000 mls @ 20 mls/hr 10/16/23 07:28 10/16/23 13:07 Lactated Ringers IV 11/15/23 07:29 400 mls .Q24H ZHOU Administration Intake and Output 10/16/23 10/16/23 10/16/23 06:59 14:59 22:59 Intake Total 400 Balance 400 Intake: IV 400 Other: Weight 121.5 kg Patient Weight 10/17/23 06:59 Weight 121.5 kg
[2023-10-16] MEDS: Pre Op ABX Message 1 EACH MISC MISCELLANE ONE (16:55)
[2023-10-16] MEDS: SODIUM CHLORIDE 0.9% 1,000 ML IV SCH (16:55)
[2023-10-16 18:07] LABS: Basophils % (A) 0 %; Eosinophils % (A) 0 %; HCT 46.1 % (39.0-53.0); HGB 14.9 gm/dL (13.0-17.5); Lymphocytes # (A) 1.3 k/uL (1.0-4.8); Lymphocytes % (A) 11 %; MCH 29.9 pg (25.0-35.0); MCHC 32.3 g/dL (31.0-37.0); MCV 92.7 fL (80.0-100.0); Mean Platelet Volume 8.6; Monocytes # (A) 0.2 k/uL (0-1.0); Monocytes % (A) 2 %; Neutrophils # (A) 10.2 k/uL (1.3-7.7); Neutrophils % (A) 86 %; Platelet Count 199 k/uL (150-450); RBC 4.97 m/uL (4.30-5.90); WBC 11.8 k/uL (3.8-10.6)
[2023-10-16 18:18] LABS: ALT 37 U/L (4-49); AST 30 U/L (17-59); African American GFR (CKD) >90 (>60 ml/min/1.73 sqM); Alkaline Phosphatase 82 U/L (38-126); Anion Gap 11 mmol/L; Blood Urea Nitrogen 15 mg/dL (9-20); Calcium 9.1 mg/dL (8.4-10.2); Carbon Dioxide 20 mmol/L (22-30); Chloride 107 mmol/L (98-107); Glucose 163 mg/dL (74-99); Non-African American GFR(CKD) >90 (>60 ml/min/1.73 sqM); Potassium 4.4 mmol/L (3.5-5.1); Sodium 138 mmol/L (137-145); Total Protein 7.1 g/dL (6.3-8.2)
[2023-10-16] MEDS: ATORVASTATIN 80 MG TAB PO SCH (20:19)
[2023-10-16] MEDS: IBUPROFEN 600 MG TAB PO PRN (21:19)
[2023-10-17 04:35] VITALS: RESP 16
[2023-10-17] MEDS: ASPIRIN 81 MG PO SCH (08:45)
[2023-10-17] MEDS: lisinopriL 5 MG TAB PO SCH (08:45)
[2023-10-17] MEDS: CHOLECALCIFEROL 25 MCG (1000 IU) TABLET PO SCH (08:45)
[2023-10-17] MEDS: MULTIVITAMINS, THERA 1 EACH TAB PO SCH (08:45)
[2023-10-17] MEDS ORDERED: NON FORMULARY DRUG (Fish Oil/Dha/Epa [Fish Oil 1,200 Mg Fish Oil] 1 EACH Capsule) PO SCH (09:00)
--- NOTE | 2023-10-17 10:42 | P.PN ---
Subjective Progress Note Date: 10/17/23 Principal diagnosis: Status post right middle finger A1 javier release, bradycardia Patient was examined today at bedside, he was resting comfortably in his hospital bed. In the postoperative splint on the right hand is in good position condition, he is having no acute symptoms with the extremity. Patient was kept overnight for monitoring due to his low heart rate. He has been evaluated by the cardiology team. Workup thus far has been negative for any acute coronary pathology, they are waiting on the echo cardiogram results Objective - Vital Signs Vital signs: Vital Signs Temp 97.5 F L 10/17/23 08:41 Pulse 78 10/17/23 08:41 Resp 16 10/17/23 08:42 BP 133/77 10/17/23 08:41 Pulse Ox 97 10/17/23 08:41 FiO2 Intake & Output 10/16/23 10/17/23 10/17/23 18:59 06:59 18:59 Intake Total 1540 Balance 1540 Weight 121.5 kg Intake: IV 1000 Oral 540 Other: # Voids 1 2 - Exam Right upper extremity: Postop bandages in good position and condition. Patient is wiggling all digits with no difficulties. His sensation to light touch throughout the extremity is intact. Radial and ulnar pulse are 2+ - Labs CBC & Chem 7: 10/16/23 17:19 10/16/23 17:19 Labs: Abnormal Lab Results - Last 24 Hours (Table) 10/16/23 10/16/23 Range/Units 17:19 17:19 WBC 11.8 H (3.8-10.6) k/uL Neutrophils # 10.2 H (1.3-7.7) k/uL Carbon Dioxide 20 L (22-30) mmol/L Glucose 163 H (74-99) mg/dL Assessment and Plan Assessment: Postoperative day #1 status post right middle finger A1 javier release Bradycardia Plan: Orthopedically patient remains stable for discharge and follow-up with Dr. Clark in the outpatient setting. Orthopedic discharge instructions have been provided in chart Cardiac recommendations appreciated, pending echo results patient should be discharged home today Time with Patient: Less than 30
--- NOTE | 2023-10-17 12:54 | P.PN ---
Subjective HISTORY OF PRESENT ILLNESS: The patient is a very pleasant 73-year-old gentleman who sees Dr. Sahu on regular basis with a past medical history significant for coronary artery disease and prior stenting of the left anterior descending artery in 2019 as well as hypertension and dyslipidemia. The patient was admitted to the hospital for an elective surgery where he underwent a finger trigger surgery earlier today. The surgery itself was uneventful. We consulted to see the patient because of bradycardia noted on the monitor and also noted by the nurse taking care of the patient. The patient came in from the surgery about an hour ago. When he came in his heart rate has been in the 50s. On the monitor in the recovery room it was noted that his nurse that his heart rate has been in the 30s and that was confirmed by the manual check of his pulse by the nurse taking care of him. Subsequently his heart rate went into the 40s. When he was seen and evaluated earlier today his heart rate has been in the 50s. I did perform an EKG and that showed sinus mechanism with polymorphic PVCs noted. No ischemic or significant ST or T-wave abnormalities noted. The patient is not experiencing any dizziness or lightheadedness but he feels tired and fatigued and he does not have any symptoms of any chest pain or chest discomfort or any shortness of breath or any feeling of heart racing or fluttering and no presyncope and no syncope. He was receiving metoprolol 25 mg by mouth twice a day until the day of the surgery today. I'm going to hold metoprolol and beside that he is not on any AV tejas sherin agents at this point. The physical examination remarkable for very distant heart sounds with regular rate and rhythm and diminished breathing sounds bilaterally and no edema was noted and the abdomen is soft and nontender 10/17/2023 Patient examined this morning at the bedside. Patient denies any chest pain or pressure. He denies any shortness of breath. He denies any dizziness or lightheadedness. Vital signs are stable. Telemetry reveals sinus mechanism with a heart rate between 7080. No further episodes of bradycardia noted. His AV tejas blocking agents remain on hold. TSH was within normal limits. 2D echo remains pending. PHYSICAL EXAM: VITAL SIGNS: Reviewed. GENERAL: Well-developed in no acute distress. NECK: Supple. No JVD or thyromegaly LUNGS: Respirations even and unlabored. Lungs essentially clear to auscultation bilaterally. HEART: Regular rate and rhythm. S1 and S2 heard. EXTREMITIES: Normal range of motion. No clubbing or cyanosis. Peripheral pulses intact. No lower extremity edema ASSESSMENT: Asymptomatic bradycardia, resolved Status post right trigger finger surgery Coronary artery disease with previous stenting of LAD Hypertension Hyperlipidemia Obstructive sleep apnea PLAN: Continue to hold metoprolol upon discharge Continue additional cardiac medications 2D echo has been ordered. Await results Patient may be discharged home this afternoon from a cardiac standpoint pending echo results He is to follow-up postdischarge in the office with Dr. Sahu Nurse practitioner note has been reviewed by physician. Signing provider agrees with the documented findings, assessment, and plan of care documented by LIABILITY CLAIMS EXAMINER as a scribe. Objective - Vital Signs Vital signs: Vital Signs Temp 97.5 F L 10/17/23 08:41 Pulse 78 10/17/23 08:41 Resp 16 10/17/23 08:42 BP 133/77 10/17/23 08:41 Pulse Ox 97 10/17/23 08:41 FiO2 Intake & Output 10/16/23 10/17/23 10/17/23 18:59 06:59 18:59 Intake Total 1540 Balance 1540 Weight 121.5 kg Intake: IV 1000 Oral 540 Other: # Voids 1 2 - Labs CBC & Chem 7: 10/16/23 17:19 10/16/23 17:19 Labs: Abnormal Lab Results - Last 24 Hours (Table) 10/16/23 10/16/23 Range/Units 17:19 17:19 WBC 11.8 H (3.8-10.6) k/uL Neutrophils # 10.2 H (1.3-7.7) k/uL Carbon Dioxide 20 L (22-30) mmol/L Glucose 163 H (74-99) mg/dL
--- NOTE | 2023-10-17 13:00 | CA ---
Transthoracic Echo Report Name: Diaz Bolanos Age: 73 Gender: M : 1950 Exam Date: 10/17/2023 08:44 Exam Location: [facility] Ht (in): 75 Wt (lb): 267 Ordering Physician: Abhilash Quevedo MD ([id number]) Attending/Referring Phys: Assistant Printer Floor Covering Jaimee Mann RDCS Procedure CPT: Indications: Bradycardia Cardiac Hx: Technical Quality: Fair Contrast 1: Total Dose (mL): Contrast 2: Total Dose (mL): MEASUREMENTS (Male / Female) Normal Values 2D ECHO LV Diastolic Diameter PLAX 5.2 cm 4.2 - 5.9 / 3.9 - 5.3 cm LV Systolic Diameter PLAX 3.1 cm IVS Diastolic Thickness 1.2 cm 0.6 - 1.0 / 0.6 - 0.9 cm LVPW Diastolic Thickness 1.3 cm 0.6 - 1.0 / 0.6 - 0.9 cm LV Relative Wall Thickness 0.5 RV Internal Dim ED PLAX 3.8 cm LA Volume 100.8 cm??? 18 - 58 / 22 - 52 cm??? LA Volume Index 39.3 cm???/m??? 16 - 28 cm???/m??? M-MODE Aortic Root Diameter MM 2.7 cm LA Systolic Diameter MM 4.5 cm LA Ao Ratio MM 1.6 AV Cusp Separation MM 2.0 cm DOPPLER AV Peak Velocity 204.3 cm/s AV Peak Gradient 16.7 mmHg AV Mean Velocity 140.6 cm/s AV Mean Gradient 8.8 mmHg AV Velocity Time Integral 43.2 cm LVOT Peak Velocity 139.2 cm/s LVOT Peak Gradient 7.7 mmHg LVOT Velocity Time Integral 30.1 cm MV Area PHT 5.2 cm??? Mitral E Point Velocity 79.2 cm/s Mitral A Point Velocity 90.2 cm/s Mitral E to A Ratio 0.9 MV Deceleration Time 147.1 ms MV E' Velocity 7.0 cm/s Mitral E to MV E' Ratio 11.3 TR Peak Velocity 306.7 cm/s TR Peak Gradient 37.6 mmHg Right Ventricular Systolic Press 42.6 mmHg FINDINGS Left Ventricle Mildly increased left ventricular wall thickness. Left ventricular cavity size normal. No obvious regional wall motion abnormalities. Left ventricular ejection fraction is estimated at 50-55 %. Right Ventricle Mild right ventricular dilatation. Mild pulmonary hypertension. Right Atrium Normal right atrial size. Left Atrium Midl LA dilatation. Mitral Valve Structurally normal mitral valve. No mitral stenosis. Mild mitral regurgitation. Aortic Valve Trileaflet aortic valve. Thickened aortic valve without stenosis. No aortic regurgitation. Tricuspid Valve Structurally normal tricuspid valve. [id number] tricuspid regurgitation. Pulmonic Valve Structurally normal pulmonic valve. Pericardium No pericardial effusion. Aorta Normal size aortic root and proximal ascending aorta. CONCLUSIONS LVEF estimated at 55% Mild concentric LVH Mild RV dilatation. Normal systolic function. RVSP 42 mmHg Mild LA dilatation Mild MR Previewed by: Dr Joey Teresa (Electronically Signed) Final Date: 17 October 2023 13:00
[2023-10-17 13:18] VITALS: BP 136/65; PULSE 68; TEMP 97.9
[2023-10-17] MEDS: ACETAMINOPHEN TAB 500 MG TAB PO PRN (14:21)
== END 2023-10-17 17:33 | disposition home or self-care (01) ==
LOC: OR 12:24 → 3SCARD 13:46 → OR 10-17 17:33
PROVIDERS: ATTEND Orthopaedic Surgery Hand Surgery
DX: M65.331 Trigger finger, right middle finger (principal); I10 Essential (primary) hypertension; I25.10 Atherosclerotic heart disease of native coronary artery without angina pectoris; E78.5 Hyperlipidemia, unspecified; G47.33 Obstructive sleep apnea (adult) (pediatric); I49.3 Ventricular premature depolarization; M65.841 Other synovitis and tenosynovitis, right hand; Z95.5 Presence of coronary angioplasty implant and graft; Z79.899 Other long term (current) drug therapy
CPT/HCPCS: 93306; 80053; 84443; 84484; 85025; 26055; J2001; J1100; J2405; J0665

== ENCOUNTER → 2024-01-31 | Outpatient (CLI) | payer BC ==
[2024-01-31 15:44] LABS: ALT 42 U/L (10-49); AST 29 U/L (14-35); Albumin 4.3 g/dL (3.8-4.9); Albumin/Globulin Ratio 1.59 Ratio (1.60-3.17); Alkaline Phosphatase 93 U/L (41-126); Blood Urea Nitrogen 12.8 mg/dL (9.0-27.0); Calcium 9.6 mg/dL (8.7-10.3); Chloride 105 mmol/L (96-109); Globulin 2.7 g/dL (1.6-3.3); Glucose 107 mg/dL (70-110); LDL Cholesterol,Calculated 52.3 mg/dL (0.0-131.0); Potassium 4.7 mmol/L (3.5-5.5); Sodium 139 mmol/L (135-145); Total Bilirubin 0.5 mg/dL (0.3-1.2); VLDL Calculation 15.38 mg/dL (5.00-40.00)
== END | disposition home or self-care (01) ==
LOC: LABWHC1 10:58
PROVIDERS: ATTEND Internal Medicine Interventional Cardiology
DX: E78.2 Mixed hyperlipidemia (principal)
CPT/HCPCS: 36415; 80053; 80061

== ENCOUNTER → 2024-08-14 | Outpatient (CLI) | payer BC ==
[2024-08-14 15:25] LABS: ALT 39 U/L (10-49); AST 29 U/L (14-35); Chol/HDL Ratio 3.38 Ratio; LDL Cholesterol,Calculated 67.9 mg/dL (0.0-131.0)
== END | disposition home or self-care (01) ==
LOC: LABWHC1 08:30
PROVIDERS: ATTEND Internal Medicine Interventional Cardiology
DX: E78.2 Mixed hyperlipidemia (principal)
CPT/HCPCS: 36415; 80061; 84450; 84460

== ENCOUNTER → 2025-01-15 | Outpatient (CLI) | payer BC ==
--- NOTE | 2025-01-15 12:57 | XR ---
EXAMINATION TYPE: XR knee complete RT DATE OF EXAM: 01/15/2025 12:25 PM COMPARISON: None. CLINICAL INDICATION: Male, 74 years old with history of R52 knee pain R, pain TECHNIQUE: XR knee complete RT views were obtained FINDINGS: There is no acute fracture/dislocation. Total knee arthroplasty is well seated.. The over lying soft tissue appears unremarkable. IMPRESSION: There is no acute fracture or dislocation.ICD 10 NO FRACTURE, INITIAL EVALUATION [facility], , 01/15/2025 12:55 PM
--- NOTE | 2025-01-15 13:05 | XR ---
EXAMINATION TYPE: XR cervical spine comp DATE OF EXAM: 01/15/2025 12:24 PM COMPARISON: 03/17/2015 CLINICAL INDICATION: Male, 74 years old with history of R52 pain; PHH, pain TECHNIQUE: The cervical spine was imaged in frontal, lateral, odontoid and bilateral oblique. FINDINGS: Fixation hardware at C3-C4 and C5 appears in similar position. Fusion of the cervical spine noted thr oughout. The osseous structures show normal alignment without evidence of an acute fracture. There ar e osteophytes noted throughout the cervical spine on the anterior and lateral aspects of the vertebra l bodies. The intervertebral disk spaces are narrowed at multiple levels. Pedicles are intact. Soft tissues are within normal limits. The odontoid appears intact. IMPRESSION: 1. No fracture or dislocation. 2. Postsurgical changes at C2-3 through C5 with hardware intact. There is fusion of the C3 through C7 vertebral bodies suggested. Findings similar to prior. 3. Mild degenerative disc disease changes of the cervical spine. [facility], , 01/15/2025 1:03 PM
--- NOTE | 2025-01-15 13:06 | XR ---
EXAMINATION TYPE: XR thoracic spine complete DATE OF EXAM: 01/15/2025 12:24 PM COMPARISON: None CLINICAL INDICATION: Male, 74 years old with history of R52 pain; PHH, pain TECHNIQUE: XR thoracic spine complete views of the spine in Frontal, swimmers and lateral projections . FINDINGS: No evidence of acute fracture. There is scattered multilevel disk space narrowing without loss of ve rtebral body height. There is normal alignment of the thoracic vertebral bodies. Scattered osteophyte formation along the anterior and lateral aspects of the vertebral bodies. Neural foramen are patent given limitations of this exam. Spinal canal appears patent. IMPRESSION: 1. No acute osseous pathology. 2. Moderate multilevel degeneration changes of the spine. [facility], , 01/15/2025 1:03 PM
== END | disposition home or self-care (01) ==
LOC: RADXRMAIN 11:33
PROVIDERS: ATTEND Family Medicine
DX: M50.30 Other cervical disc degeneration, unspecified cervical region (principal); M47.814 Spondylosis without myelopathy or radiculopathy, thoracic region; M25.561 Pain in right knee; Z98.1 Arthrodesis status
CPT/HCPCS: 72050; 72072

== ENCOUNTER → 2025-02-01 | Outpatient (CLI) | payer BC, MEDICARE ==
[2025-02-01 15:21] LABS: ALT 42 U/L (10-49); AST 37 U/L (14-35); Cholesterol 103.00 mg/dL (0.00-200.00); HDL Cholesterol 44.20 mg/dL (40.00-60.00); LDL Cholesterol,Calculated 45.7 mg/dL (0.0-131.0); Triglycerides 65.60 mg/dL (0.00-149.00); VLDL Calculation 13.12 mg/dL (5.00-40.00)
== END | disposition home or self-care (01) ==
LOC: LABWHC1 12:52
PROVIDERS: ATTEND Nurse Practitioner Adult Health
DX: E78.2 Mixed hyperlipidemia (principal)
CPT/HCPCS: 36415; 80061; 84450; 84460